=== PATIENT | female | born 1945 | race Caucasian/White ===

== ENCOUNTER → 2020-06-17 | Outpatient (CLI) | payer OTHER | LOC: KOH-I 05-29 14:00 | DX: J32.9 Chronic sinusitis, unspecified (principal) | CPT/HCPCS: 70486 ==

== ENCOUNTER → 2020-10-06 | Outpatient (CLI) | payer OTHER ==
[~2020-10-06] MED LIST: AMITIZA8 MCG PO; BUSPAR 10MG10 MG PO; CIMETIDINE200 MG PO; CLOPIDOGREL75 MG PO; CYANOCOBAL1000 MCG/1 INJ; ECOTRIN81 MG PO; HYDROXYZINE HCL25 MG PO; LIPITOR40 MG PO; METOPROLOL TART25 MG PO; MORGIDOX100 MG PO; MUPIROCIN; ONDANSETRON ODT8 MG PO; OXYBUTYNIN CHLOR5 MG PO; PROTONIX 40 MG40 M1 PO; SINEQUAN CAP 2525 MG PO; VITAMIN D21250 MCG PO; ZANAFLEX 4 MG TA4 MG PO
[2020-10-06 11:58] LABS: HEMOGLOBIN 14.3 gm/dl (12.3-15.3); RED BLOOD COUNT 4.74 M/UL (4.00-5.10); WHITE BLOOD COUNT 8.2 K/UL (4.5-11.0)
== END ==
LOC: OPSV2 10:14
PROVIDERS: Anesthesiology
DX: Z01.818 Encounter for other preprocedural examination (principal)
CPT/HCPCS: 36415; 71046; 80048; 85025; 93005

== ENCOUNTER → 2020-10-13 | Day surgery (SDC) | payer OTHER | END | disposition home or self-care (01) | LOC: OR 06:51 | DX: J33.8 Other polyp of sinus (principal); J32.9 Chronic sinusitis, unspecified; J34.3 Hypertrophy of nasal turbinates; Z79.01 Long term (current) use of anticoagulants; Z88.0 Allergy status to penicillin; Z88.2 Allergy status to sulfonamides; I10 Essential (primary) hypertension; J45.909 Unspecified asthma, uncomplicated; K21.9 Gastro-esophageal reflux disease without esophagitis; E78.00 Pure hypercholesterolemia, unspecified; Z79.82 Long term (current) use of aspirin; Z20.822 Contact with and (suspected) exposure to COVID-19 | CPT/HCPCS: C1726; J0171; J1100; J2001; J2704; J2710; J3010; J7030; J7120 ==